=== PATIENT | male | born 1955 | race Hispanic/Latino ===

== ENCOUNTER 2020-02-23 11:39 | Inpatient (IN) | payer MEDICARE, OTHER ==
[~2020-02-23] VITALS: Ht 160 cm; Wt 76.3 kg
[2020-02-23 12:23] LABS: BASOPHILS % (AUTO) 0.6 % (0.0-5.0); EOSINOPHILS % (AUTO) 0.5 % (0.0-8.0); HEMATOCRIT 31.3 % (42-54); LYMPHOCYTES % (AUTO) 6.1 % (21.0-51.0); MEAN CORPUSCULAR HEMOGLOBIN 34.3 pg (27.0-33.0); MEAN CORPUSCULAR HGB CONC 37.4 g/dL (32.0-36.0); MEAN CORPUSCULAR VOLUME 91.8 fL (79-99); MONOCYTES % (AUTO) 14.3 % (3.0-13.0); NEUTROPHILS % (AUTO) 77.4 % (40.0-77.0); PLATELET COUNT (AUTO) 136 K/uL (130-400); RED BLOOD CELL COUNT(AUTO) 3.41 MIL/uL (4.50-6.20); WHITE BLOOD COUNT (AUTO) 13.2 K/uL (4.8-10.8)
[2020-02-23 12:28] LABS: CREATININE 0.8 mg/dL (0.5-1.5); POTASSIUM 3.4 mmol/L (3.5-5.1)
[2020-02-23 12:30] LABS: INR 1.73 (0.85-1.15); PARTIAL THROMBOPLASTIN TIME 39.9 SEC (26.3-35.5); PROTHROMBIN TIME 18.3 SEC (9.6-11.6)
[2020-02-23 12:37] LABS: ALBUMIN 2.1 g/dL (3.5-5.0); BILIRUBIN,TOTAL 12.5 mg/dL (0.2-1.0); TOTAL PROTEIN, SERUM 6.6 g/dL (6.0-8.3)
[2020-02-23 14:06] LABS: APPEARANCE,URINE CLEAR (CLEAR); BILIRUBIN,URINE LARGE (NEGATIVE); GLUCOSE, URINE (UA) 100 mg/dL (NEGATIVE); KETONES,URINE 5 mg/dL (NEGATIVE); LEUKOCYTE ESTERASE ,URINE TRACE (NEGATIVE); NITRATE,URINE POSITIVE (NEGATIVE); OCCULT BLOOD,URINE NEGATIVE (NEGATIVE); PH,URINE 6.5 (5.0-8.0); PROTEIN,URINE TRACE mg/dL (NEGATIVE); UROBILINOGEN,URINE >=8.0 mg/dL (0.2-1.0)
[2020-02-23 14:07] LABS: COLOR,URINE ORANGE (YELLOW)
[2020-02-23] MEDS ORDERED: ONDANSETRON HCL 4 MG/2 ML VIAL IVP PRN (14:15)
[2020-02-23] MEDS ORDERED: MORPHINE SULFATE 2 MG/ML 1ML SYG IVP PRN (14:15)
[2020-02-23] MEDS ORDERED: ACETAMINOPHEN 325 MG TAB PO PRN (14:15)
[2020-02-23 14:18] LABS: BACTERIA,URINE Few /HPF (None Seen); SQUAMOUS EPITHELIAL CELL,UR Few /HPF (0-2)
[2020-02-23 14:20] LABS: MUCUS,URINE Few LPF (None Seen)
[2020-02-23] MEDS ORDERED: CHLORDIAZEPOXIDE HCL 25 MG CAP PO PRN (16:15)
[2020-02-23] MEDS ORDERED: PHARMACY COMMUNICATION MISC PRN (16:15)
[2020-02-23] MEDS ORDERED: LORAZEPAM 2 MG/ML 1 ML VIAL IVP PRN (16:15)
[2020-02-23 16:31] LABS: AMPHET/METH SCREEN,URINE NEGATIVE (NEGATIVE); BARBITURATE SCREEN, URINE NEGATIVE (NEGATIVE); BENZODIAZEPINES SCREEN,URINE NEGATIVE (NEGATIVE); CANNABINOID SCREEN,URINE NEGATIVE (NEGATIVE); COCAINE SCREEN,URINE NEGATIVE (NEGATIVE); OPIATE SCREEN,URINE NEGATIVE (NEGATIVE); PHENCYCLIDINE SCREEN,URINE NEGATIVE (NEGATIVE)
[2020-02-23 16:41] LABS: ALCOHOL, BLOOD < 3 mg/dL (0-10); PHOSPHORUS 2.1 mg/dL (2.5-4.9)
[2020-02-23 17:14] VITALS: BP 139/86
[2020-02-23] MEDS ORDERED: POTASSIUM CHLORIDE 10% ELIXIR 20 MEQ/15 ML UDCUP PO PRN (17:15)
[2020-02-23] MEDS ORDERED: POTASSIUM CHLORIDE 20MEQ/100ML 100 ML IV PRN (17:15)
[2020-02-23] MEDS ORDERED: LIDOCAINE HCL-MPF 1% 2ML VIAL IV PRN (17:15)
[2020-02-23] MEDS: THIAMINE HCL 100 MG, FOLIC ACID 1 MG, M.V.I. IV [ADULT] 10 ML in SODIUM CHLORIDE 0.9% 1... IV SCH (18:01)
[2020-02-23] MEDS: SODIUM CHLORIDE 0.9% 1000ML 1,000 ML IV SCH (18:11)
[2020-02-23] MEDS: POTASSIUM CHLORIDE 20 MEQ ERTAB PO PRN ×2 (18:49→22:01)
[2020-02-23 20:09] VITALS: BP 125/85
[2020-02-23 23:46] VITALS: BP 159/76
[2020-02-24] MEDS: SODIUM CHLORIDE 0.9% 1000ML 1,000 ML IV SCH ×3 (00:15→20:55)
[2020-02-24] MEDS ORDERED: GUAIFENESIN-CODEINE 5 ML SYRUP PO PRN (01:00)
[2020-02-24 03:32] VITALS: BP 125/77
[2020-02-24 06:13] LABS: HEMATOCRIT 29.9 % (42-54); MEAN CORPUSCULAR HEMOGLOBIN 33.7 pg (27.0-33.0); MEAN CORPUSCULAR HGB CONC 36.5 g/dL (32.0-36.0); MEAN CORPUSCULAR VOLUME 92.6 fL (79-99); RED BLOOD CELL COUNT(AUTO) 3.23 MIL/uL (4.50-6.20); RED CELL DISTRIBUTION WIDTH 22.2 % (11.0-15.5); WHITE BLOOD COUNT (AUTO) 11.7 K/uL (4.8-10.8)
[2020-02-24 06:53] LABS: ALBUMIN 1.7 g/dL (3.5-5.0); BILIRUBIN,TOTAL 12.5 mg/dL (0.2-1.0); CREATININE 0.6 mg/dL (0.5-1.5); MAGNESIUM 1.4 mg/dL (1.80-2.40); POTASSIUM 4.3 mmol/L (3.5-5.1); THYROID STIMULATING HORMONE 43.44 uIU/mL (0.36-3.74); TOTAL PROTEIN, SERUM 5.5 g/dL (6.0-8.3); URIC ACID 2.3 mg/dL (2.6-7.2)
[2020-02-24 06:59] LABS: BILIRUBIN,DIRECT 9.2 mg/dL (0.0-0.3)
[2020-02-24] MEDS ORDERED: MAGNESIUM 2GM PREMIX 50ML 50 ML IV PRN (07:00)
[2020-02-24] MEDS: MAGNESIUM 2GM PREMIX 50ML 50 ML IV PRN (07:04)
[2020-02-24 08:22] VITALS: BP 133/79
[2020-02-24] MEDS: FOLIC ACID 1 MG TABLET PO SCH (08:25)
[2020-02-24] MEDS: MULTIVITAMIN TABLET PO SCH (08:25)
[2020-02-24] MEDS: SPIRONOLACTONE 25 MG TAB PO SCH (08:25)
[2020-02-24] MEDS: FUROSEMIDE 10 MG/ML 2ML VIAL IVP SCH (08:26)
[2020-02-24] MEDS: PANTOPRAZOLE 40 MG/VIAL IVP SCH (09:07)
--- NOTE | 2020-02-24 10:01 | NUR ---
U/S GD PARACENTESIS PROCEDURE PERFORMED BY DR Ian KRUSE. PUNCTURE SITE RUQ AND PATIENT TOLERATED PROCEDURE WELL. TOTAL REMOVED 4.4 LITERS OF CLEAR YELLOW FLUID. END OF PROCEDURE AT 0950. CATHETER REMOVED AND DRESSING APPLIED. NO BLEEDING NOTED. REPORT GIVEN TO PORFIRIO JC AND PATIENT TRANSPORTED TO [address] [place] [address] W/C AT 1000. AAO X3 WITH NO C/O PAIN. SPECIMEN SENT TO LAB. ALBUMIN 25% ORDERED PER [facility] PROT[facility].
[2020-02-24 12:41] LABS: APPEARANCE BODY FLUID CLEAR (CLEAR); COLOR,BODY FLUID YELLOW (LT YELLOW); SPECIMENTYPE,BODY FLUID ASCITES
[2020-02-24 12:42] LABS: BODY FLUID RBC 36 /cu. mm.; BODY FLUID WBC 102 /cu. mm.; TOTAL VOLUME,BODY FLUID 4400 mL
[2020-02-24 12:47] LABS: BF LYMPHOCYTE 7 %; BF MESOTHELIAL 35 %; BF MONOCYTE 39 %
[2020-02-24] MEDS: ALBUMIN (HUMAN) 25% 100 ML IV SCH (13:05)
[2020-02-24 15:23] VITALS: BP 114/54
--- NOTE | 2020-02-24 16:36 | NUR ---
JOSY- SPOKE TO PATIENT FOR DC PLANNING DAVID TELLEZ LIVES MOSTLY IN [facility] ALONE IN AN APARTMENT, SEES MD'S OVER THERE . IS MOSTLY INDEPENDENT ALTHOUGH HE NO LONGER DRIVES. ALSO HAS HOME IN [place], BUT RIGHT NOW STAYING WITH [facility] IN [place] BECAUSE HE IS WEAKER AND NEEDS SOME ASSISTANCE W COOKING, CLEAING, ETC. NO DME. [facility] TRANSPORTS. DCP IS TO [facility] HOME AT THIS TIME Addendum: 02/24/20 at 1639 by WESLEY ARAIZA RN CM Amended: Links added.
[2020-02-24] MEDS: THIAMINE HCL 100 MG, FOLIC ACID 1 MG, M.V.I. IV [ADULT] 10 ML in SODIUM CHLORIDE 0.9% 1... IV SCH (17:58)
[2020-02-24 18:24] VITALS: BP 119/70
[2020-02-24 20:09] VITALS: BP 113/69
[2020-02-24 23:50] VITALS: BP 116/71
[2020-02-25 03:39] VITALS: BP 116/76
[2020-02-25 04:24] LABS: EOSINOPHILS % (AUTO) 1.4 % (0.0-8.0); HEMATOCRIT 30.4 % (42-54); LYMPHOCYTES % (AUTO) 5.9 % (21.0-51.0); MEAN CORPUSCULAR HEMOGLOBIN 34.5 pg (27.0-33.0); MEAN CORPUSCULAR HGB CONC 36.8 g/dL (32.0-36.0); MEAN CORPUSCULAR VOLUME 93.5 fL (79-99); MONOCYTES % (AUTO) 15.6 % (3.0-13.0); NEUTROPHILS % (AUTO) 75.1 % (40.0-77.0); PLATELET COUNT (AUTO) 150 K/uL (130-400); RED BLOOD CELL COUNT(AUTO) 3.25 MIL/uL (4.50-6.20); RED CELL DISTRIBUTION WIDTH 22.9 % (11.0-15.5); WHITE BLOOD COUNT (AUTO) 12.9 K/uL (4.8-10.8)
[2020-02-25 04:44] LABS: CREATININE 0.8 mg/dL (0.5-1.5); MAGNESIUM 1.8 mg/dL (1.80-2.40); POTASSIUM 4.4 mmol/L (3.5-5.1); T4 (THYROXINE) 4.1 ug/dL (4.7-13.3); THYROID STIMULATING HORMONE 41.32 uIU/mL (0.36-3.74)
[2020-02-25] MEDS: MAGNESIUM 2GM PREMIX 50ML 50 ML IV PRN (05:23)
[2020-02-25] MEDS: SODIUM CHLORIDE 0.9% 1000ML 1,000 ML IV SCH ×2 (05:27→16:15)
--- NOTE | 2020-02-25 05:45 | NUR ---
STATUS Pt slept well.No distress noted.
[2020-02-25 08:00] VITALS: BP 117/67
[2020-02-25] MEDS: FUROSEMIDE 10 MG/ML 2ML VIAL IVP SCH (09:04)
[2020-02-25] MEDS: MULTIVITAMIN TABLET PO SCH (09:05)
[2020-02-25] MEDS: SPIRONOLACTONE 25 MG TAB PO SCH (09:05)
[2020-02-25] MEDS: FOLIC ACID 1 MG TABLET PO SCH (09:05)
[2020-02-25] MEDS: PANTOPRAZOLE 40 MG/VIAL IVP SCH (09:08)
[2020-02-25] MEDS: ALBUMIN (HUMAN) 25% 100 ML IV SCH (10:15)
[2020-02-25 11:00] VITALS: BP 122/84
[2020-02-25 16:00] VITALS: BP 117/79
[2020-02-25] MEDS: THIAMINE HCL 100 MG, FOLIC ACID 1 MG, M.V.I. IV [ADULT] 10 ML in SODIUM CHLORIDE 0.9% 1... IV SCH (18:03)
[2020-02-25] MEDS ORDERED: OMEP20TA25 PO (18:14)
[2020-02-25 19:38] VITALS: BP 137/80
[2020-02-25 23:27] VITALS: BP 121/73
--- NOTE | 2020-02-25 23:44 | NUR ---
CALM Pt resting quietly,no distress noted.
[2020-02-26 04:39] VITALS: BP 115/72
[2020-02-26 05:25] LABS: HEMATOCRIT 31.5 % (42-54); MEAN CORPUSCULAR HEMOGLOBIN 35.1 pg (27.0-33.0); MEAN CORPUSCULAR HGB CONC 36.5 g/dL (32.0-36.0); RED BLOOD CELL COUNT(AUTO) 3.28 MIL/uL (4.50-6.20); RED CELL DISTRIBUTION WIDTH 23.6 % (11.0-15.5); WHITE BLOOD COUNT (AUTO) 14.1 K/uL (4.8-10.8)
[2020-02-26] MEDS: LEVOTHYROXINE 50 MCG TABLET PO SCH (05:25)
[2020-02-26] MEDS: SODIUM CHLORIDE 0.9% 1000ML 1,000 ML IV SCH (05:25)
[2020-02-26 05:55] LABS: CREATININE 0.7 mg/dL (0.5-1.5); POTASSIUM 4.5 mmol/L (3.5-5.1)
[2020-02-26 07:44] VITALS: BP 121/79
[2020-02-26] MEDS: FOLIC ACID 1 MG TABLET PO SCH (08:18)
[2020-02-26] MEDS: MULTIVITAMIN TABLET PO SCH (08:18)
[2020-02-26] MEDS: THIAMINE HCL 100 MG TABLET PO SCH (08:18)
[2020-02-26] MEDS: FUROSEMIDE 10 MG/ML 2ML VIAL IVP SCH (08:19)
[2020-02-26] MEDS: SPIRONOLACTONE 25 MG TAB PO SCH (08:19)
[2020-02-26] MEDS: ALBUMIN (HUMAN) 25% 100 ML IV SCH (10:15)
[2020-02-26] MEDS ORDERED: PANTOPRAZOLE SODIUM 40 MG TABLET.DR PO SCH (10:46)
[2020-02-26 11:48] VITALS: BP 131/83
[2020-02-26] MEDS ORDERED: VANCOMYCIN PROTOCOL PER PHARMACY IV SCH (14:00)
[2020-02-26] MEDS ORDERED: VANCOMYCIN 1.5 GM in SODIUM CHLORIDE 0.9% 250 ML IV ONE (14:00)
[2020-02-26] MEDS: CEFTRIAXONE SODIUM 1 GM IVP SCH (14:50)
--- NOTE | 2020-02-26 15:00 | NUR ---
RYANNE RESTREPO NP SPOKE WITH RYANNE FERGUSON REGARDING PT. HEART RATE IN THE 120-150'S, NO NEW ORDERS AT THIS TIME.
[2020-02-26 16:00] VITALS: BP 137/76
[2020-02-26 20:00] VITALS: BP 97/59
[2020-02-26] MEDS: LACTULOSE 20 GM/30 ML UDCUP PO SCH (20:17)
[2020-02-27 00:09] VITALS: BP 125/78
[2020-02-27] MEDS: VANCOMYCIN 1GM+NS 250ML 250 ML IV SCH ×3 (01:31→20:31)
[2020-02-27 04:00] VITALS: BP 114/72
[2020-02-27 06:04] LABS: BAND NEUTROPHILS % (MANUAL) 24 % (0-2); BASOPHILS % (MANUAL) 1 % (0-2); LYMPHOCYTES % (MANUAL) 2 % (22-44); MAN.DIFF COMMENT-IMPRESSION MANUAL DIFFERENTIAL; MONOCYTES % (MANUAL) 10 % (2-9); SEGMENTED NEUTROPHILS % 63 % (40-70)
[2020-02-27 06:05] LABS: PLATELET MORPHOLOGY COMMENT ADEQUATE
[2020-02-27 06:06] LABS: HEMATOCRIT 28.1 % (42-54); MEAN CORPUSCULAR HEMOGLOBIN 35.1 pg (27.0-33.0); MEAN CORPUSCULAR HGB CONC 36.3 g/dL (32.0-36.0); MEAN CORPUSCULAR VOLUME 96.6 fL (79-99); PLATELET COUNT (AUTO) 145 K/uL (130-400); RED BLOOD CELL COUNT(AUTO) 2.91 MIL/uL (4.50-6.20); RED CELL DISTRIBUTION WIDTH 23.2 % (11.0-15.5); WHITE BLOOD COUNT (AUTO) 20.8 K/uL (4.8-10.8)
[2020-02-27 06:15] LABS: CREATININE 1.4 mg/dL (0.5-1.5); POTASSIUM 3.5 mmol/L (3.5-5.1)
[2020-02-27] MEDS: PANTOPRAZOLE SODIUM 40 MG TABLET.DR PO SCH (06:35)
[2020-02-27] MEDS: LEVOTHYROXINE 50 MCG TABLET PO SCH (06:35)
[2020-02-27 08:04] VITALS: BP 107/65
[2020-02-27] MEDS: LACTULOSE 20 GM/30 ML UDCUP PO SCH ×2 (08:39→20:33)
[2020-02-27] MEDS: MULTIVITAMIN TABLET PO SCH (08:39)
[2020-02-27] MEDS: THIAMINE HCL 100 MG TABLET PO SCH (08:39)
[2020-02-27] MEDS: SPIRONOLACTONE 25 MG TAB PO SCH (08:39)
[2020-02-27] MEDS: FUROSEMIDE 10 MG/ML 2ML VIAL IVP SCH (08:39)
[2020-02-27 11:38] VITALS: BP 99/67
[2020-02-27] MEDS: CEFTRIAXONE SODIUM 1 GM IVP SCH (14:20)
[2020-02-27 15:51] VITALS: BP 138/65
[2020-02-27] MEDS: POTASSIUM CHLORIDE 20 MEQ ERTAB PO PRN ×2 (18:03→20:33)
[2020-02-27 19:56] VITALS: BP 121/85
--- NOTE | 2020-02-27 20:00 | NUR ---
ASSESSMENT NOTE AWAKE, ALERT, OX3, NO SOB, NO C/O PAIN AT THIS TIME, REINFORCE FLUID RESTRICTION 1.8 LITER,TEACH PATIENT PLAN OF CARE AND EXPECTED OUTCOME, PATIENT VERBALIZES UNDERSTANDING VIA TEACH BACK
[2020-02-28] VITALS (13 sets, daily range): BP systolic 113–147; BP diastolic 52–85
[2020-02-28 04:24] LABS: BASOPHILS % (AUTO) 0.4 % (0.0-5.0); EOSINOPHILS % (AUTO) 1.1 % (0.0-8.0); HEMATOCRIT 28.5 % (42-54); LYMPHOCYTES % (AUTO) 6.7 % (21.0-51.0); MEAN CORPUSCULAR HEMOGLOBIN 34.8 pg (27.0-33.0); MEAN CORPUSCULAR HGB CONC 36.5 g/dL (32.0-36.0); MEAN CORPUSCULAR VOLUME 95.3 fL (79-99); MONOCYTES % (AUTO) 13.4 % (3.0-13.0); NEUTROPHILS % (AUTO) 76.9 % (40.0-77.0); PLATELET COUNT (AUTO) 148 K/uL (130-400); RED BLOOD CELL COUNT(AUTO) 2.99 MIL/uL (4.50-6.20); RED CELL DISTRIBUTION WIDTH 22.8 % (11.0-15.5); WHITE BLOOD COUNT (AUTO) 20.6 K/uL (4.8-10.8)
[2020-02-28 04:35] LABS: CREATININE 2.1 mg/dL (0.5-1.5); MAGNESIUM 1.7 mg/dL (1.80-2.40); POTASSIUM 4.1 mmol/L (3.5-5.1); VANCOMYCIN LEVEL 12.5 mcg/mL (18.0-26.0)
[2020-02-28] MEDS: PANTOPRAZOLE SODIUM 40 MG TABLET.DR PO SCH (05:41)
[2020-02-28] MEDS: LEVOTHYROXINE 50 MCG TABLET PO SCH (05:41)
[2020-02-28 07:50] LABS: INR 1.63 (0.85-1.15); PROTHROMBIN TIME 17.3 SEC (9.6-11.6)
[2020-02-28] MEDS: THIAMINE HCL 100 MG TABLET PO SCH (09:09)
[2020-02-28] MEDS: MULTIVITAMIN TABLET PO SCH (09:09)
[2020-02-28] MEDS: SPIRONOLACTONE 25 MG TAB PO SCH (09:09)
[2020-02-28] MEDS: FUROSEMIDE 10 MG/ML 2ML VIAL IVP SCH (09:10)
[2020-02-28] MEDS: LACTULOSE 20 GM/30 ML UDCUP PO SCH ×2 (09:11→20:20)
--- NOTE | 2020-02-28 10:00 | NUR ---
CHART REVIEWED, NOTED CREATININE ELEVATIONT Addendum: 02/28/20 at 1932 by WESLEY ARAIZA RN CM Amended: Links added.
--- NOTE | 2020-02-28 10:15 | NUR ---
U/S GD PARACENTESIS PROCEDURE PERFORMED BY DR Ian KRUSE. PUNCTURE SITE RUQ AND PATIENT TOLERATED PROCEDURE WELL. TOTAL REMOVED 3 LITERS OF CLEAR YELLOW FLUID. END OF PROCEDURE AT 0955. CATHETER REMOVED AND DRESSING APPLIED. NO BLEEDING NOTED. REPORT GIVEN TO PORFIRIO JC AND PATIENT TRANSPORTED TO [address] [address] W/ AT 1015. AAO X3 WITH NO C/O PAIN.
[2020-02-28] MEDS ORDERED: ZYVOX 600 MG TAB PO SCH (11:45)
[2020-02-28] MEDS: CEFTRIAXONE SODIUM 1 GM IVP SCH (17:54)
[2020-02-28] MEDS: ZYVOX 600 MG TAB PO SCH ×2 (18:15→20:20)
[2020-02-28] MEDS ORDERED: PHARMACY COMMUNICATION MISC SCH (19:15)
--- NOTE | 2020-02-28 20:00 | NUR ---
assessment note patient awake,alert, ox3,no sob,n o c/o fitzgerald at this time, encourage patient to take deep breathing exercises, teach patient plan of care and expected outcome, patient verbalizes understanding via teACH BACK
[2020-02-28] MEDS: ALBUMIN (HUMAN) 25% 200 ML IV SCH (21:00)
[2020-02-29 03:55] VITALS: BP 125/74
[2020-02-29] MEDS: ALBUMIN (HUMAN) 25% 200 ML IV SCH (05:01)
[2020-02-29] MEDS: LEVOTHYROXINE 50 MCG TABLET PO SCH (05:50)
[2020-02-29] MEDS: PANTOPRAZOLE SODIUM 40 MG TABLET.DR PO SCH (05:50)
[2020-02-29 06:11] LABS: BASOPHILS % (AUTO) 0.6 % (0.0-5.0); EOSINOPHILS % (AUTO) 1.8 % (0.0-8.0); HEMATOCRIT 27.4 % (42-54); LYMPHOCYTES % (AUTO) 7.6 % (21.0-51.0); MEAN CORPUSCULAR HEMOGLOBIN 35.1 pg (27.0-33.0); MEAN CORPUSCULAR HGB CONC 36.5 g/dL (32.0-36.0); MEAN CORPUSCULAR VOLUME 96.1 fL (79-99); MONOCYTES % (AUTO) 12.7 % (3.0-13.0); NEUTROPHILS % (AUTO) 76.1 % (40.0-77.0); PLATELET COUNT (AUTO) 151 K/uL (130-400); RED BLOOD CELL COUNT(AUTO) 2.85 MIL/uL (4.50-6.20); RED CELL DISTRIBUTION WIDTH 22.5 % (11.0-15.5); WHITE BLOOD COUNT (AUTO) 14.1 K/uL (4.8-10.8)
[2020-02-29 06:43] LABS: ALBUMIN 2.8 g/dL (3.5-5.0); BILIRUBIN,TOTAL 10.5 mg/dL (0.2-1.0); CREATININE 2.6 mg/dL (0.5-1.5); POTASSIUM 4.2 mmol/L (3.5-5.1); TOTAL PROTEIN, SERUM 6.2 g/dL (6.0-8.3)
[2020-02-29 08:10] VITALS: BP 108/60
[2020-02-29 09:18] LABS: MAGNESIUM 1.8 mg/dL (1.80-2.40); PHOSPHORUS 3.6 mg/dL (2.5-4.9)
[2020-02-29] MEDS: MULTIVITAMIN TABLET PO SCH (10:15)
[2020-02-29] MEDS: THIAMINE HCL 100 MG TABLET PO SCH (10:16)
[2020-02-29] MEDS: LACTULOSE 20 GM/30 ML UDCUP PO SCH ×2 (10:16→21:07)
[2020-02-29] MEDS: FUROSEMIDE 10 MG/ML 2ML VIAL IVP SCH (10:16)
[2020-02-29] MEDS: ZYVOX 600 MG TAB PO SCH ×2 (10:16→21:08)
[2020-02-29] MEDS: SPIRONOLACTONE 25 MG TAB PO SCH (10:16)
[2020-02-29 11:36] LABS: INR 1.57 (0.85-1.15); PARTIAL THROMBOPLASTIN TIME 45.3 SEC (26.3-35.5); PROTHROMBIN TIME 16.7 SEC (9.6-11.6)
[2020-02-29 11:58] VITALS: BP 116/71
[2020-02-29] MEDS ORDERED: ALBUMIN (HUMAN) 25% 200 ML IV SCH (13:15)
[2020-02-29] MEDS: CEFTRIAXONE SODIUM 1 GM IVP SCH (13:58)
[2020-02-29] MEDS: OCTREOTIDE ACETATE 100 MCG/ML AMP SQ SCH ×2 (14:25→22:49)
[2020-02-29 16:38] VITALS: BP 117/72
[2020-02-29 19:45] VITALS: BP 109/77
[2020-02-29 23:40] VITALS: BP 126/84
[2020-03-01 03:55] VITALS: BP 116/77
[2020-03-01 05:15] LABS: BASOPHILS % (AUTO) 1.2 % (0.0-5.0); EOSINOPHILS % (AUTO) 3.1 % (0.0-8.0); HEMATOCRIT 27.8 % (42-54); LYMPHOCYTES % (AUTO) 5.9 % (21.0-51.0); MEAN CORPUSCULAR HEMOGLOBIN 34.8 pg (27.0-33.0); MEAN CORPUSCULAR VOLUME 96.9 fL (79-99); MONOCYTES % (AUTO) 17.6 % (3.0-13.0); PLATELET COUNT (AUTO) 143 K/uL (130-400); RED BLOOD CELL COUNT(AUTO) 2.87 MIL/uL (4.50-6.20); RED CELL DISTRIBUTION WIDTH 22.3 % (11.0-15.5); WHITE BLOOD COUNT (AUTO) 9.6 K/uL (4.8-10.8)
[2020-03-01 05:26] LABS: ALBUMIN 2.9 g/dL (3.5-5.0); CREATININE 2.6 mg/dL (0.5-1.5); POTASSIUM 4.3 mmol/L (3.5-5.1); TOTAL PROTEIN, SERUM 5.8 g/dL (6.0-8.3)
[2020-03-01] MEDS: LEVOTHYROXINE 50 MCG TABLET PO SCH (06:05)
[2020-03-01] MEDS: PANTOPRAZOLE SODIUM 40 MG TABLET.DR PO SCH (06:05)
[2020-03-01] MEDS: OCTREOTIDE ACETATE 100 MCG/ML AMP SQ SCH ×3 (06:05→21:33)
[2020-03-01 08:38] VITALS: BP 108/69
[2020-03-01] MEDS: LACTULOSE 20 GM/30 ML UDCUP PO SCH ×2 (09:05→21:33)
[2020-03-01] MEDS: SPIRONOLACTONE 25 MG TAB PO SCH (09:05)
[2020-03-01] MEDS: ZYVOX 600 MG TAB PO SCH ×2 (09:06→21:32)
[2020-03-01] MEDS: THIAMINE HCL 100 MG TABLET PO SCH (09:06)
[2020-03-01] MEDS: MULTIVITAMIN TABLET PO SCH (09:07)
[2020-03-01] MEDS: FUROSEMIDE 10 MG/ML 2ML VIAL IVP SCH (09:07)
[2020-03-01 11:47] VITALS: BP 114/80
[2020-03-01] MEDS: CEFTRIAXONE SODIUM 1 GM IVP SCH (14:01)
[2020-03-01] MEDS: MAGNESIUM 2GM PREMIX 50ML 50 ML IV PRN (16:13)
[2020-03-01 16:15] VITALS: BP 123/76
[2020-03-01 19:40] VITALS: BP 134/88
[2020-03-01 23:48] VITALS: BP 123/84
[2020-03-02 03:47] VITALS: BP 127/81
[2020-03-02 04:47] LABS: HEMATOCRIT 28.6 % (42-54); MEAN CORPUSCULAR HEMOGLOBIN 34.9 pg (27.0-33.0); MEAN CORPUSCULAR HGB CONC 35.7 g/dL (32.0-36.0); MEAN CORPUSCULAR VOLUME 97.9 fL (79-99); PLATELET COUNT (AUTO) 159 K/uL (130-400); RED BLOOD CELL COUNT(AUTO) 2.92 MIL/uL (4.50-6.20); RED CELL DISTRIBUTION WIDTH 22.4 % (11.0-15.5); WHITE BLOOD COUNT (AUTO) 9.9 K/uL (4.8-10.8)
[2020-03-02 04:58] LABS: CREATININE 2.5 mg/dL (0.5-1.5); POTASSIUM 4.7 mmol/L (3.5-5.1)
[2020-03-02] MEDS: LEVOTHYROXINE 50 MCG TABLET PO SCH (06:02)
[2020-03-02] MEDS: PANTOPRAZOLE SODIUM 40 MG TABLET.DR PO SCH (06:02)
[2020-03-02 06:06] LABS: BAND NEUTROPHILS % (MANUAL) 5 % (0-2); BASOPHILS % (MANUAL) 1 % (0-2); EOSINOPHILS % (MANUAL) 1 % (1-6); LYMPHOCYTES % (MANUAL) 7 % (22-44); MAN.DIFF COMMENT-IMPRESSION MANUAL DIFFERENTIAL; MONOCYTES % (MANUAL) 12 % (2-9); REACTIVE LYMPHOCYTES 2 % (0-0); SEGMENTED NEUTROPHILS % 72 % (40-70)
[2020-03-02 06:11] LABS: PLATELET MORPHOLOGY COMMENT ADEQUATE
[2020-03-02] MEDS: OCTREOTIDE ACETATE 100 MCG/ML AMP SQ SCH (06:19)
[2020-03-02 08:15] VITALS: BP 120/76
[2020-03-02] MEDS: FUROSEMIDE 10 MG/ML 2ML VIAL IVP SCH (10:48)
[2020-03-02] MEDS: SPIRONOLACTONE 25 MG TAB PO SCH (10:49)
[2020-03-02] MEDS: MULTIVITAMIN TABLET PO SCH (10:49)
[2020-03-02] MEDS: LACTULOSE 20 GM/30 ML UDCUP PO SCH (10:49)
[2020-03-02] MEDS: THIAMINE HCL 100 MG TABLET PO SCH (10:49)
[2020-03-02] MEDS: ZYVOX 600 MG TAB PO SCH (10:50)
[2020-03-02] MEDS ORDERED: FURO20TA6 PO (14:14)
[2020-03-02 14:59] VITALS: BP 117/77
--- NOTE | 2020-03-02 17:30 | NUR ---
DISCHARGE discussed discharge instructions with pt called alex Andrea on phone discussed follow up and rx ,called in to [facility] ,voices understanding
== END 2020-03-02 17:15 | disposition home or self-care (01) | DRG 432 ==
LOC: EDH 11:39 → EDHIP 14:03 → OBSVTOIN 14:03 → 3CH 16:14
PROVIDERS: ADMIT Hospitalist; ATTEND Hospitalist
PROC: 0W9G3ZZ Drainage of Peritoneal Cavity, Percutaneous Approach (ICD-10-PCS; principal; 2020-02-24)
PROC: 0W9G3ZZ Drainage of Peritoneal Cavity, Percutaneous Approach (ICD-10-PCS; 2020-02-28)
DX: K70.31 Alcoholic cirrhosis of liver with ascites (principal); K76.7 Hepatorenal syndrome; E87.1 Hypo-osmolality and hyponatremia; N17.9 Acute kidney failure, unspecified; N39.0 Urinary tract infection, site not specified; I85.10 Secondary esophageal varices without bleeding; E87.6 Hypokalemia; F10.10 Alcohol abuse, uncomplicated; D72.829 Elevated white blood cell count, unspecified; R60.1 Generalized edema; Z91.19 Patient's noncompliance with other medical treatment and regimen; D64.9 Anemia, unspecified; D69.6 Thrombocytopenia, unspecified; E03.9 Hypothyroidism, unspecified; K59.00 Constipation, unspecified; N18.9 Chronic kidney disease, unspecified; Z85.038 Personal history of other malignant neoplasm of large intestine
CPT/HCPCS: 36415; 49083; 71045; 74176; 76536; 76705; 80048; 80053; 80076; 80202; 80305; 81001; 82150; 82550; 83690; 83735; 83880; 83930; 83935; 84100; 84436; 84443; 84481; 84484; 84550; 85025; 85027; 85610; 85730; 87040; 87071; 87077; 87088; 87186; 87205; 88112; 88305; 89051; 93005; C9113; G0378; J0696; J1940; J2060; J2354; J3370; J3411; J3475; J3490; J7030; J7050; P9046

== ENCOUNTER 2025-04-16 07:27 | Day surgery (SDC) | payer OTHER, MEDICAID ==
[2025-04-16] VITALS (10 sets, daily range): BP systolic 101–121; BP diastolic 66–73; PULSE 61–78; RESP 12–17; TEMP 97.4–97.6
[~2025-04-16] VITALS: Ht 160 cm; Wt 92.1 kg
[~2025-04-16 07:27] MED LIST: FURO20TA6 PO; OMEP20TA20 PO
[2025-04-16] MEDS ORDERED: LEVO25CA5 PO (08:55)
[2025-04-16] MEDS ORDERED: MONT-39 PO (08:55)
[2025-04-16] MEDS ORDERED: FOLI0.8C PO (08:55)
[2025-04-16] MEDS: 0.9%NACL 1000ML 1,000 ML IV ONE (08:57)
--- NOTE | 2025-04-16 12:18 | NUR ---
VERBAL INSTRUCTIONS GIVEN TO NIECE IN [place]AGE VIA TELEPHONE. WRITTEN INSTRUCTIONS AND VERBAL GIVEN TO PT. PENDING TRANSPORT VAN FOR PT.
== END 2025-04-16 12:25 | disposition home or self-care (01) ==
LOC: ENDO 07:27 → DAH 07:27 → ENDO 12:25
PROVIDERS: ATTEND Internal Medicine Gastroenterology
DX: K70.30 Alcoholic cirrhosis of liver without ascites (principal); K29.50 Unspecified chronic gastritis without bleeding; K31.89 Other diseases of stomach and duodenum; I85.10 Secondary esophageal varices without bleeding; K31.A0 Gastric intestinal metaplasia, unspecified; M10.9 Gout, unspecified; F41.9 Anxiety disorder, unspecified; Z90.49 Acquired absence of other specified parts of digestive tract; Z98.890 Other specified postprocedural states; K80.20 Calculus of gallbladder without cholecystitis without obstruction; K57.30 Diverticulosis of large intestine without perforation or abscess without bleeding; N40.0 Benign prostatic hyperplasia without lower urinary tract symptoms; Z86.0100 Personal history of colon polyps, unspecified; Z85.818 Personal history of malignant neoplasm of other sites of lip, oral cavity, and pharynx; Z79.899 Other long term (current) drug therapy
CPT/HCPCS: 43239; J7030; J2704; A4620; A7002; J3490